=== PATIENT | female | born 1975 | race Asian ===

== ENCOUNTER → 2025-01-11 | Outpatient (CLI) | payer MEDICAID, SELFPAY ==
--- NOTE | 2025-01-11 | XR_ITS ---
Examination: Hand, right 3 views Technique: Hand AP, oblique, lateral 3 views Date and time of exam: January 11, 2025 1159 hours INDICATIONS: Severe right hand pain beginning one year ago FINDINGS: Mild juxta-articular bone demineralization No fractures No dislocations Mild osteoarthritis distal interphalangeal joints second through fifth digits No erosive arthritis No cortical bone destruction No opaque foreign bodies IMPRESSION: Mild osteoarthritis as above
--- NOTE | 2025-01-11 | XR_ITS ---
Examination: Wrist, right 3 views Technique: Wrist AP, oblique, lateral 3 views Date and time of exam: January 11, 2025 at 1159 hours INDICATIONS: Right wrist pain one year. FINDINGS: Mild narrowing radiocarpal joint No fracture or dislocation No erosive arthritis No avascular necrosis IMPRESSION: Mild narrowing radiocarpal joint No erosive arthritis
== END | disposition home or self-care (01) ==
PROVIDERS: PCP Physician Assistant; Referring Provider Physician Assistant; Visit Provider Physician Assistant
DX: M19.041 Primary osteoarthritis, right hand (principal); M25.831 Other specified joint disorders, right wrist
CPT/HCPCS: 73110; 73130